=== PATIENT | male | born 1965 | race Caucasian/White ===

== ENCOUNTER 2016-06-20 01:23 | Inpatient (IN) ==
[2016-06-20] MEDS ORDERED: MORPHINE 2 MG/1 ML SYRINGE IV STA (01:55)
[2016-06-20] MEDS ORDERED: ONDANSETRON 4 MG/2 ML VIAL IV STA (01:55)
[2016-06-20] MEDS ORDERED: NITROGLYCERIN SL 0.4 MG TABLET SL STA (01:55)
[2016-06-20] MEDS ORDERED: MORPHINE 2 MG/1 ML SYRINGE ONE (01:56)
[2016-06-20] MEDS ORDERED: ONDANSETRON 4 MG/2 ML VIAL ONE (01:56)
[2016-06-20] MEDS ORDERED: NITROGLYCERIN SL 0.4 MG TABLET SL ONE (01:57)
--- NOTE | 2016-06-20 02:03 | Emergency Department Note ---
IConrad Sierra, am scribing for, and in the presence of, Soumya Aldrich DO 02: 01. IValdemar Debra, DO, personally performed the services described in this documentation, ascribed by Shari Martines in my presence, and it is both accurate and complete . Arrival - Arrival Chief Complaint: Chest Pain Stated Complaint: poss.heart attack ED Nursing Triage Note: PATIENT COMPLAINS OF NON-REPRODUCIBLE MID STERNAL CHEST TIGHTNESS/PAIN THAT BEGAN ABOUT AN HOUR AGO. PATIENT DENIES ANY NAUSEA OR VOMITNIG. NO MEDICAL HISTORY. NO CARDIAC HISTORY. Mode of Arrival: Wheelchair Limitations: No Limitations Source: Patient Time Seen by Provider: 06/20/16 01:44 - History of Present Illness HPI Narrative: Pt is a 50 y/o male that came to the ED with c/o chest tightness in the middle of his chest that began about 2 hours ago. Pt has associated sxs of radiating down left arm once, faint feeling, and hard to catch breath but denies N/V, abdominal pain, or any noticeable swelling. Pt reports he was woken up from his sleep with sxs. He states it did happen several years ago when he took some supplements but denies currently taking any substances. Pt admits he has had some alcohol tonight. He reports pain has "mellowed out now." states she did give pt 3 aspirins when episode occurred. No other complaints/pain in ED at this time. Onset (ago): hour(s) Consistency: constant Severity: mild Severity scale (1-10): 2 Quality: other Review of System - Review of System 12 point system: reviewed and no additional remarkable complaints except as stated - Review of System Constitutional: Absent: chills, fever Respiratory: Present: other (unable to catch breath during episode). Absent: cough Cardiovascular: Present: other (chest tightness) Gastrointestinal: Absent: abdominal pain, nausea, vomiting Musculoskeletal: Present: arm pain (pain radiated down left arm during episode) . Absent: back pain, leg pain, neck pain Skin: Absent: rash Neurological: Absent: headache, numbness, confusion Psychiatric: Absent: anxiety Medical,Surgical,& Family Hx - Surgical History Orthopedic Surgeries: Surgical HX of;: Orthopedic Surgery (RIGHT KNEE SURGERY) - Family History Family History: Reports;: Family Hypertension - Social History Smoking Status: Never smoker Frequency of Alcohol Use: Occasionally Type of Drug Use: None Exam Vital Signs: Vital Signs Temperature 97.8 F 06/20/16 01:32 Pulse Rate 88 06/20/16 01:32 Respiratory Rate 20 06/20/16 01:32 Blood Pressure 146/83 06/20/16 01:32 O2 Sat by Pulse Oximetry 99 06/20/16 01:32 - General General appearance: alert, in no apparent distress - Head Head exam: Present: atraumatic, normocephalic - Eye Eye exam: Present: PERRL, EOMI - ENT ENT exam: Present: mucous membranes moist. Absent: mucous membranes dry - Neck Neck exam: Present: full ROM. Absent: tenderness - Chest Chest inspection: Present: symmetric chest wall rise. Absent: tenderness - Respiratory Respiratory exam: Present: normal lung sounds bilaterally. Absent: respiratory distress - Cardiovascular Cardiovascular exam: Present: regular rate, normal rhythm, normal heart sounds - Abdominal Exam Abdominal exam: Present: soft. Absent: tenderness - Extremities Exam Extremities exam: Present: full ROM. Absent: tenderness - Back Exam Back exam: Present: full ROM. Absent: tenderness - Neurological Exam Neurological exam: Present: alert, oriented X3, CN II-XII intact. Absent: motor sensory deficit - Psychiatric Psychiatric exam: Present: normal affect, normal mood - Skin Skin exam: Present: warm, dry Course Course Narrative: spoke with DR Wing who will admit pt Results - Labs CBC & BMP: 06/20/16 01:45 06/20/16 01:45 Lab Results: I have reviewed the patients labs Labs: Laboratory Tests 06/20/16 01:45 MCV 86.4 L MPV 9.5 L Neut % (Auto) 38.0 L Baso % (Auto) 1.1 H Laboratory Tests 06/20/16 01:45 Sodium 146 H Potassium 3.1 L Chloride 108 H Anion Gap 18.1 H Glucose 115 H Globulin 3.7 H Albumin/Globulin Ratio 1.0 L - EKG EKG results: interpreted by NAIND - Diagnostic Findings Procedure: Chest x-ray: image reviewed by me
[2016-06-20 02:09] LABS: Basophils # 0.1 10*3/uL (0.0-0.2); Basophils % 1.1 % (0.0-0.8); Eosinophils # 0.7 10*3/uL (0.0-0.87); Eosinophils % 8.8 % (0.00-10.9); Hematocrit 46.5 VOL% (42.0-52.0); Hemoglobin 15.7 GM/DL (14.0-18.0); Immature Granulocytes % 0.7 %; Immature Granulocytes Absolute 0.05 #; Lymphocytes # 3.1 10*3/uL (1.4-4.0); Lymphocytes % 41.9 % (21.2-54.2); Mean Corpuscular HGB Conc 33.8 GM/DL (32-36); Mean Corpuscular Hemoglobin 29 PG (27-34); Mean Corpuscular Volume 86.4 FL (87-102); Mean Platelet Volume 9.5 FL (9.6-12.0); Monocytes # 0.7 10*3/uL (0.11-0.8); Monocytes % 9.5 % (1.7-12.7); Neutrophils # 2.8 10*3/uL (1.4-7.4); Platelet Count 202 T/CUMM (130-400); Red Blood Count 5.38 MC/CUMM (3.8-5.5); Red Cell Distribution Width 12.4 % (9.3-17.3); White Blood Count 7.4 T/CUMM (4-12)
[2016-06-20 02:24] LABS: Alanine Aminotransferase 34 U/L (16-61); Albumin 3.7 G/DL (3.4-5.0); Alkaline Phosphatase 63 U/L (45-117); Aspartate Amino Transferase 23 U/L (0-37); Bilirubin,Total < 0.39 MG/DL (0.2-1.0); Blood Urea Nitrogen 14 MG/DL (7-18); Calcium 8.5 MG/DL (8.5-10.1); Glucose 115 MG/DL (74-106); Osmolality,Calculated 291.6 MOS/KG (273-304); Potassium 3.1 MMOL/L (3.5-5.1); Sodium 146 MMOL/L (136-145); Total Protein 7.4 G/DL (6.4-8.3); Troponin I Only < 0.015 NG/ML (0.00-0.045)
[2016-06-20 02:29] LABS: PT Patient Result 10.1 SECS; Partial Thromboplastin Time 24.9 SECS (0-40)
[2016-06-20] MEDS ORDERED: POTASSIUM CHLORIDE 20 MEQ TABLET PO STA (02:45)
[2016-06-20] MEDS ORDERED: POTASSIUM CHLORIDE 20 MEQ TABLET PO ONE (03:06)
[2016-06-20] MEDS ORDERED: MAGNESIUM SULF RIDER 2 GM in PREMIX 1 EACH IV PRN (03:09)
[2016-06-20] MEDS ORDERED: MAGNESIUM SULF RIDER 4 GM in PREMIX 1 EACH IV PRN (03:09)
[2016-06-20] MEDS ORDERED: ONDANSETRON 4 MG/2 ML VIAL IV PRN (03:09)
[2016-06-20] MEDS ORDERED: MORPHINE 2 MG/1 ML SYRINGE IV PRN (03:09)
--- NOTE | 2016-06-20 03:15 | EKG Report ---
Please refer to the EKG image. Final interpretation is pending.
[2016-06-20 03:50] LABS: Eosinophils 8 % (0-10); Lymphocytes 51 % (20-55); Myelocytes 1 %; Platelet Estimate Normal; Segmented Neutrophils 37 % (50-85); Total Cells Counted 100
[2016-06-20] MEDS: SODIUM CHLORIDE 0.9% 1,000 ML IV SCH ×2 (04:43→12:19)
[2016-06-20 06:04] LABS: Troponin I Only < 0.015 NG/ML (0.00-0.045)
[2016-06-20 06:12] LABS: Magnesium 2.2 MG/DL (1.8-2.4); Risk Ratio 4.31; Thyroid Stimulating Hormone 3.29 uIU/ml (0.358-3.74); VLDL CHOLESTEROL 23.8 MG/DL
--- NOTE | 2016-06-20 06:55 | XRay Report ---
XR chest 1V portable Indication: SOB Comparison: None Technique: Single frontal view of the chest Findings: Heart size appears within normal limits. Change of the lungs without focal consolidation, pleural effusion, or pneumothorax. Osseous and surrounding soft tissue structures demonstrate no acute abnormality. IMPRESSION: No acute cardiopulmonary process demonstrated. PROCEDURE INTERPRETED AT [facility] DEPARTMENT OF RADIOLOGY Final Report Signed by: Dr Osmany Landaverde
--- NOTE | 2016-06-20 07:33 | EKG Report ---
Please refer to the EKG image. Final interpretation is pending.
[2016-06-20 08:36] LABS: Troponin I Only < 0.015 NG/ML (0.00-0.045)
[2016-06-20] MEDS ORDERED: ENOXAPARIN 40 MG/0.4 ML SYRINGE SUBCUT SCH (09:00)
[2016-06-20] MEDS ORDERED: POTASSIUM CHLORIDE 20 MEQ TABLET PO PRN (10:23)
[2016-06-20 10:48] LABS: Troponin I Only < 0.015 NG/ML (0.00-0.045)
--- NOTE | 2016-06-20 11:48 | Cardiology History & Physical ---
I, Valentina Rosado RN, am scribing for, and in the presence of, Param Rosa MD 11:45. Assessment and Plan - Time spent with patient Time spent with patient: Greater than 30 minutes (1) Palpitations Status: Acute Assessment and plan: I'm suspicious he had a transient arrhythmia. He had a low potassium which could predispose him to arrhythmia. We will replete his potassium, check an echo, and a stress test. He does not really have any symptoms of sleep apnea. Current Visit: Yes (2) Chest pain Status: Acute Assessment and plan: The patient's cardiac enzymes are negative. His EKG does not show any evidence of cardiac ischemia. His symptoms were really more of heart racing and palpitations. I'm suspicious that he had a transient arrhythmia such as paroxysmal atrial fibrillation. The low potassium level also makes him at risk for such an arrhythmia. I do think we need to screen him with a stress Cardiolite. Further conation we'll follow. Current Visit: Yes (3) Former light tobacco smoker Status: Acute Assessment and plan: Reports he has not smoked in over 5 years and only previously smoked socially. Current Visit: Yes (4) Hypokalemia Status: Acute Current Visit: Yes History of Present Illness Chief complaint: chest pain History of present illness: Mr. 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 His primary care provider is Dr. Reyes who he last saw in February 2016. He denies any significant medical history including no history of diabetes, hypertension, hyperlipidemia. He currently takes no medications. He is a former smoker having quit over 5 years ago. Previously he only smoked in social settings. He reports he has 4-5 alcoholic drinks per month. He denies use of recreational drugs. He denies a family history of [place], stroke, diabetes, hypertension. He tells me his grandfather had "heart trouble" but smoked his entire life; he also tells me his mom had heart trouble following a history of cancer. He presents to the emergency room this morning with complaints of heart racing, beating out of his chest, and a sensation of chest discomfort that woke him up about 1230 a.m. there was some associated dyspnea and lightheadedness. Apparently his heart rate would jump up into the 130s and then drop back to the 80s then back to the 130s on and off. It sounds like he had a transient arrhythmia. He tells me the symptoms lasted until he arrived in the emergency room. His symptoms were relieved following administration of nitroglycerin, morphine, and Zofran. His symptoms were moderate to severe at their worst, and have completely resolved. There were no specific exacerbating or alleviating factors. There was no associated nausea vomiting, or radiation. Symptoms are not exacerbated by exertion or relieved with rest. He denies any previous history of cardiac arrhythmia or cardiac disease. He denies any associated syncope, nausea, vomiting, diaphoresis. He is a fairly active individual and reports he works out several times weekly without symptoms of chest pain or shortness of breath. Thus far, his cardiac biomarkers are negative. Potassium is 3.1. Triglycerides 119, cholesterol 207, LDL 139, HDL 48. Chest x-ray shows normal heart size, no cardiopulmonary processes. Current Medications Enoxaparin Sodium (Lovenox) 40 mg SUBCUT Q24H [facility] Magnesium Sulfate 4 gm/ Premix 100 mls @ 25 mls/hr IV .PER PROTOCOL PRN; Protocol PRN Reason: Per Protocol Magnesium Sulfate 2 gm/ Premix 50 mls @ 25 mls/hr IV .PER PROTOCOL PRN; Protocol PRN Reason: Per Protocol Sodium Chloride (Ns) 1,000 mls @ 125 mls/hr IV .Q8H [facility] Last Admin: 06/20/16 04:43 Dose: 125 mls/hr Morphine Sulfate () 2 mg IV Q4H PRN PRN Reason: Pain Severe (8-10) Ondansetron HCl (Zofran Inj) 4 mg IV Q4H PRN PRN Reason: Nausea Home Medications Medication Instructions Recorded Confirmed Type No Known Home Medications [No 06/20/16 06/20/16 History Known Home Medications] Allergies Allergy/AdvReac Type Severity Reaction Status Date / Time egg Allergy Unknown/Unable Verified 06/20/16 04:12 to obtain promethazine [From Phenergan] Allergy Muscle Pain Verified 06/20/16 03:29 - Constitutional Constitutional: Absent: anorexia, chills, daytime sleepiness, excessive sweating , fatigue, fever(s), frequent falls, headache(s), increased appetite, lethargy, malaise, night sweats, stops breathing during sleep, weakness, weight gain, weight loss - EENT Eyes: Absent: blurry vision, diplopia, loss of vision Ears: Absent: decreased hearing, ear discharge, ear pain Nose, mouth and throat: Absent: dysphagia, epistaxis, headache(s), hoarseness, lip swelling, nasal congestion, neck mass, neck pain, sinus pressure, sore throat, throat swelling, tongue swelling, vertigo - Cardiovascular Cardiovascular: Present: as per HPI, chest pain at rest, dyspnea, radiating jaw , neck or arm pain, palpitations ("racing heart"). Absent: chest pain with activity, claudication, diaphoresis, dyspnea on exertion, edema, lightheadedness , orthopnea, PND - Respiratory Respiratory: Present: as per HPI, dyspnea. Absent: cough, hemoptysis, dyspnea on exertion, wheezing, snoring, pain on inspiration - Gastrointestinal Gastrointestinal: Absent: abdominal pain, bloating, change in bowel habits, coffee ground emesis, constipation, diarrhea, heartburn, hematemesis, hematochezia, loose stools, melena, nausea, vomiting - Genitourinary Genitourinary: Absent: difficulty urinating, dysuria, flank pain, hematuria, nocturia, urinary frequency, urinary incontinence - Musculoskeletal Musculoskeletal: Absent: arthralgias, back pain, joint swelling, limited range of motion, muscle cramps, muscle weakness, myalgias - Neurological Neurological: Absent: abnormal gait, abnormal speech, behavioral changes, confusion, convulsions, disequilibrium, dizziness, focal weakness, frequent falls, headache(s), memory loss, numbness, paresthesias, radicular pain, syncope , tremor(s) - Psychiatric Psychiatric: Absent: anxiety, confusion, depression, memory loss, panic attacks - Endocrine Endocrine: Absent: cold intolerance, fatigue, heat intolerance, polydipsia, polyphagia - Hematologic/Lymphatic Hematologic/Lymphatic: Absent: easy bleeding, easy bruising, lymphadenopathy Medical,Surgical,& Family Hx - Surgical History Orthopedic Surgeries: Surgical HX of;: Orthopedic Surgery (RIGHT KNEE SURGERY) - Family History Family History: Reports;: Family Hypertension - Social History Smoking Status: Former smoker (former social smoker, has not smoked in 5+ years) Frequency of Alcohol Use: Occasionally Type of Drug Use: None Marital Status: Lives With:: Spouse Functional capacity: independent ambulation Cardiology Physical Exam - Constitutional Vitals: Vital Signs Temp Pulse Resp BP Pulse Ox 97.5 F L 75 18 114/54 93 L 06/20/16 08:00 06/20/16 08:00 06/20/16 08:00 06/20/16 08:00 06/20/16 08:00 Intake and Output 06/19/16 06/20/16 06/20/16 22:59 06:59 14:59 Other: Weight 180 lb General appearance: no acute distress, over weight - Head Head exam: Present: normal inspection, normocephalic - Eye Eye exam: Absent: conjunctival injection, periorbital swelling, scleral icterus Pupils: Present: BECKY. Absent: dilated - ENT ENT exam: Present: normal exam, normal external ear exam - Neck Neck exam: Present: normal inspection. Absent: tenderness - Respiratory Respiratory exam: Present: clear to auscultation bilaterally. Absent: rales, rhonchi, stridor, wheezes - Cardiovascular Cardiovascular exam: Present: regular rate and rhythm. Absent: carotid bruit, diastolic murmur, systolic murmur - GI/Abdominal GI/Abdominal exam: Present: normal bowel sounds, soft. Absent: distended, mass , tenderness - Extremities Exam Extremities exam: Present: normal inspection, other (2+ peripheral pulses bilaterally). Absent: calf tenderness, edema - Back Exam Back exam: Present: normal inspection. Absent: vertebral tenderness - Neurological Exam Neurological exam: Present: alert, oriented X3, other (grossly intact, no resting or essential tremor) - Psychiatric Psychiatric exam: Present: normal affect, normal mood - Skin Skin exam: Present: normal color, warm, dry. Absent: cyanosis Result/EKG - Labs CBC & BMP: 06/20/16 01:45 06/20/16 01:45 Lab Results: I have reviewed the past 24 hour labs Labs: Laboratory Results - last 24 hr 06/20/16 06/20/16 04:20 04:20 Magnesium 2.2 Total Creatine Kinase 159 CK-MB (CK-2) < 1.0 Troponin I < 0.015 Triglycerides 119 Cholesterol 207 H LDL Cholesterol 139.0 VLDL Cholesterol 23.8 HDL Cholesterol 48 Heart Disease Risk Ratio 4.31 TSH 3rd Generation 3.290 - EKG EKG results: interpreted by me I, Param Rosa MD, personally performed the services described in this documentation, ascribed by Valentina Rosado RN in my presence, and it is both accurate and complete .
--- NOTE | 2016-06-20 16:02 | Nuclear Medicine Report ---
PROCEDURE: Stress myocardial perfusion study. Mr. Vergara is a 50-year-old male with no known cardiac history. He came to the hospital having palpi tations and chest discomfort. I am performing a stress myocardial perfusion study for cardiac risk evaluation. The patient underwent rest myocardial perfusion study after a 10 mCi dose of Technetium -99m bound to Sestamibi. He then underwent a full Sean protocol stress test. The patient exercise d for 8 minutes and 40 seconds achieving a maximum heart rate of 165 beats per minute, which is 97% of his age-predicted maximum. He had a normal hemodynamic response. He had no clinical or EKG sign s of ischemia. Near peak exercise, he received a 30 mCi dose of Technetium-99m bound to Sestamibi a nd repeat myocardial perfusion imaging was performed. Comparison of the stress and rest myocardial perfusion images revealed no evidence of significant cardiac ischemia. Quantitative perfusion te sis also shows no evidence of cardiac ischemia with a summed stress score of 0. Quantitative perfus ion analysis calculated a left ventricular ejection fraction of 65% with normal regional wall motion . IMPRESSIONS: 1. CLINICALLY AND ELECTRICALLY NEGATIVE MAXIMAL FULL SEAN PROTOCOL STRESS TEST. 2. I SEE NO CONVINCING EVIDENCE OF CARDIAC ISCHEMIA ON PERFUSION IMAGING. 3. THERE IS NORMAL LEFT VENTRICULAR SYSTOLIC FUNCTION. CONCLUSION: These results are most consistent with a low risk test. Procedure performed and interpreted at [facility] Department of Radiology.
[2016-06-20 16:39] VITALS: BP 114/69
--- NOTE | 2016-06-20 17:14 | Discharge Summary ---
Alonzo Oviedo Lauren, JASPREET, am scribing for, and in the presence of, Param Rosa MD 17:14. Hospital Course - Hospital Course Hospital Course: Mr. Vergara is a 50 year old male with no prior cardiac history or significant medical history. He presents to the emergency room today with complaints of heart racing, beating out of his chest, and a sensation of chest discomfort that woke him up about 12:30 AM. He did have some associated dyspnea and lightheadedness. It sounds as if Mr. Vergara had a transient arrhythmia. He reports his heart rate would jump up into the 130s and then drop back to the 80s then back to the 130s on and off until he arrived at the emergency department. He underwent stress testing today which was negative for cardiac ischemia. Echocardiogram performed today revealed ejection fraction of 60% with trace mitral regugitation. Blood pressure has remained well controlled. He has been in normal sinus rhythm with well controlled rate. His potassium was low on admission. He will be discharged on potassium supplement 20 mEq by mouth daily and will follow up with our clinic in 1 week with a CMP, Mg, and EKG. Please call in to patient's pharmacy of choice: [facility] 20 mEq oral daily Dispense: #30 tablets Refills: 5 - Time spent with patient Time with patient DS: Less than 30 minutes Diagnosis - Discharge Diagnosis (1) Chest pain Status: Acute (2) Former light tobacco smoker Status: Acute (3) Hypokalemia Status: Acute (4) Palpitations Status: Acute Specialty Discharge - Follow Up or Referrals Follow up with: Param Rosa MD [Physician] - 1 Week (Follow up with Dr. Rosa at the [facility], [address] [place] [address], [place] [address], , in 1 week with CMP, Mg, and EKG. ) Discharge Plan - Discharge Data Disposition: Disch To Home/Self Care Condition at Discharge: Stable Discharge Diet: advance to your usual diet Activity: resume usual activities as tolerated Hygiene: no restrictions Weight Bearing at Discharge: full weight bearing Driving: no restrictions Contact your physician if you experience:: fever over 101, Difficulty voiding, Redness or swelling, Nausea/Vomiting, Shortness of breath, Bleeding, pain uncontrolled by pain medications - Discharge Medications New RX: Potassium Chloride Cap/Tab [[facility]] 20 meq PO DAILY #30 tablet - Follow Up or Referral Follow Up: Param Rosa MD [Physician] - 1 Week (Follow up with Dr. Rosa at the [facility], [address] [place] [address], [place] [id number], , in 1 week with CMP, Mg, and EKG. ) - Forms/Instructions Exam - Constitutional Vitals: Period Temp Pulse Resp BP Sys/Galeana Pulse Ox Last 24 Hr 97.5 F-97.7 F 70-85 18-19 110-132/54-75 93-97 Exam: General appearance: no acute distress, over weight - Head Head exam: Present: normal inspection, normocephalic - Eye Eye exam: Absent: conjunctival injection, periorbital swelling, scleral icterus Pupils: Present: BECKY. Absent: dilated - ENT ENT exam: Present: normal exam, normal external ear exam - Neck Neck exam: Present: normal inspection. Absent: tenderness - Respiratory Respiratory exam: Present: clear to auscultation bilaterally. Absent: rales, rhonchi, stridor, wheezes - Cardiovascular Cardiovascular exam: Present: regular rate and rhythm. Absent: carotid bruit, diastolic murmur, systolic murmur - GI/Abdominal GI/Abdominal exam: Present: normal bowel sounds, soft. Absent: distended, mass , tenderness - Extremities Exam Extremities exam: Present: normal inspection, other (2+ peripheral pulses bilaterally). Absent: calf tenderness, edema - Back Exam Back exam: Present: normal inspection. Absent: vertebral tenderness - Neurological Exam Neurological exam: Present: alert, oriented X3, other (grossly intact, no resting or essential tremor) - Psychiatric Psychiatric exam: Present: normal affect, normal mood - Skin Skin exam: Present: normal color, warm, dry. Absent: cyanosis Discharge Results Procedures and tests throughout hospitalization: Pending Orders 06/20/16 11:42 NM mayank perf SPECT rest or str Routine Labs on day of discharge: Labs from last 24 hours 06/20/16 06/20/16 06/20/16 10:04 07:13 04:20 Magnesium 2.2 Total Creatine Kinase 145 148 CK-MB (CK-2) < 1.0 < 1.0 Troponin I < 0.015 < 0.015 Triglycerides 119 Cholesterol 207 H LDL Cholesterol 139.0 VLDL Cholesterol 23.8 HDL Cholesterol 48 Heart Disease Risk Ratio 4.31 TSH 3rd Generation 3.290 06/20/16 04:20 Magnesium Total Creatine Kinase 159 CK-MB (CK-2) < 1.0 Troponin I < 0.015 Triglycerides Cholesterol LDL Cholesterol VLDL Cholesterol HDL Cholesterol Heart Disease Risk Ratio TSH 3rd Generation DS: Provider Expected date of discharge: 06/20/16 Shelley Oviedo Michael, MD, personally performed the services described in this documentation, ascribed by Valentina Rosado RN in my presence, and it is both accurate and complete .
--- NOTE | 2016-06-21 08:29 | ECHO Report ---
Dk Vergarai Exam Date: 06/20/2016 12:05 Referring Physician: Technologist: Conchis Ochoa KEYLA Age: 50 Ht (in): Wt (lb): Gender: M Exam Location: [facility] Echo Indications: Chest pain, unspecified, Palpitations, Shortness of breath, Hypokalemia BP: / HR: Rhythm: Sinus Technical Quality: IMPRESSIONS Left ventricular ejection fraction is estimated at 60 %. Trace mitral valve regurgitation. Trace tricuspid valve regurgitation. MEASUREMENTS (Male / Female) Normal Values 2D ECHO LV Diastolic Diameter PLAX 4.7 cm 4.2 - 5.9 / 3.9 - 5.3 cm LV Systolic Diameter PLAX 2.8 cm LV Fractional Shortening PLAX 40.3 % IVS Diastolic Thickness 1.0 cm 0.6 - 1.0 / 0.6 - 0.9 cm LVPW Diastolic Thickness 1.0 cm 0.6 - 1.0 / 0.6 - 0.9 cm RV Internal Dim ED PLAX 2.7 cm Aortic Root Diameter 2.8 cm LA Systolic Diameter LX 3.2 cm 3.0 - 4.0 / 2.7 - 3.8 cm DOPPLER TR Peak Velocity 269.0 cm/s TR Peak Gradient 28.9 mmHg FINDINGS Left Ventricle Normal left ventricular cavity size. Normal left ventricular wall thickness. Left ventricular ejection fraction is estimated at 60 %. Right Ventricle The right ventricle is normal in size and function. Right Atrium The right atrium is normal in size. Left Atrium The left atrium is normal in size. Mitral Valve Morphologically normal mitral valve. Trace mitral valve regurgitation. Aortic Valve Morphologically normal aortic valve without significant sclerosis or stenosis. There is no aortic regurgitation. Tricuspid Valve Morphologically normal tricuspid valve. Trace tricuspid valve regurgitation. Tricuspid regurgitation velocities suggest a PAP of 39 mmHg. Pulmonic Valve Morphologically normal pulmonic valve without significant stenosis. There is no pulmonic regurgitation. Pericardium Normal pericardium without effusion. Aorta Normal ascending aorta dimension. Param Rosa (Electronically Signed) Final Date: 20 June 2016 15:12
== END 2016-06-20 18:57 | disposition home or self-care (01) | DRG 310 ==
LOC: N.ED 01:23 → N.EDINP 03:09 → N.TELES 03:54
PROVIDERS: ADMIT Internal Medicine Cardiovascular Disease; ATTEND Internal Medicine Cardiovascular Disease